=== PATIENT | female | born 1960 | race Caucasian/White ===

== ENCOUNTER 2018-08-19 10:37 | Emergency (ER) | payer OTHER ==
[~2018-08-19] VITALS: Ht 162.6 cm; Wt 104.3 kg
--- NOTE | ~2018-08-19 | EKG ---
[address] [address] ELECTROCARDIOGRAM REPORT Name: EUSEBIO MARCOS Room [facility]: [id number] Admission: 08/19/18 Attend Phys: Discharge: 08/19/18 Date of : 60 Report #: [id number] THIS REPORT FOR: //name// [facility] ED Test Date: 2018-08-19 Test Time: 10:43:11 Pat Name: EUSEBIO MARCOS Department: Room: Gender: F [employer]: : 1960 Requested By: Merlin Ulloa Order Number: [id number] MD: Moy Teresa Measurements Intervals [place] Rate: 75 P: 65 ND: 157 QRS: -29 QRSD: 95 T: 34 QT: 397 QTc: 444 Interpretive Statements Sinus rhythm Borderline left axis deviation Anteroseptal infarct, age indeterminate Compared to ECG 07/08/2018 07:03:35 Myocardial infarct finding now present Electronically Signed On 08-20-2018 8:26:16 CDT by Moy Teresa [email or web address] <ELECTRONICALLY SIGNED> By: Moy Teresa MD 08/20/18 0826 1043 [id number] Moy Teresa MD /LOLA
[~2018-08-19 10:37] MED LIST: FLEXERIL PO; MEDROLDOSEPACK PO; NORCO 5-325 TA1 EACH PO; NORFLEX100 MG PO; SYNTHROID50 MCG PO
[2018-08-19] MEDS ORDERED: NOHOMEMEDICATIONS (10:55)
[2018-08-19 10:59] LABS: HEMATOCRIT 34.9 % (37.0-47.0); HEMOGLOBIN 11.6 gm/dL (12.0-15.0); MCH 27.1 pg (26.0-34.0); MCHC 33.2 g/dL (28.0-37.0); MCV 81.4 fL (80.0-100.0); PLATELET COUNT 184 thou/uL (150-400); RBC 4.29 mil/uL (4.20-5.00); RDW 14.1 % (10.5-14.5); WBC 5.6 thou/uL (4.0-11.0)
[2018-08-19 11:04] LABS: ANION GAP 9 mmol/L (7-16); BUN 15 mg/dL (7-18); CALCIUM 9.2 mg/dL (8.5-10.1); CHLORIDE 106 mmol/L (98-107); CO2 27 mmol/L (21-32); CREATININE 0.8 mg/dL (0.6-1.0); GLUCOSE 126 mg/dL (74-106); POTASSIUM 3.7 mmol/L (3.5-5.1); SODIUM 142 mmol/L (136-145)
[2018-08-19 11:13] LABS: ALBUMIN 3.3 g/dL (3.4-5.0); SGOT 25 U/L (15-37); SGPT 24 U/L (30-65); TOTAL BILIRUBIN 0.3 mg/dL (<0.1-1.0); TOTAL PROTEIN 7.2 g/dL (6.4-8.2); TROPONIN-I <0.06 ng/mL (<0.06)
[2018-08-19 11:42] LABS: ABSOLUTE NEUTROPHILS 2.9 thou/uL (1.4-8.2); PLATELET ESTIMATE NORMAL
[2018-08-19 11:43] LABS: URINE BILIRUBIN NEGATIVE (Negative); URINE BLOOD 1+ (Negative); URINE CLARITY CLEAR; URINE COLOR YELLOW; URINE GLUCOSE-RANDOM* NEGATIVE (Negative); URINE KETONES NEGATIVE (Negative); URINE NITRITE-REFLEX NEGATIVE (Negative); URINE PROTEIN (DIPSTICK) NEGATIVE (Negative); URINE SPECIFIC GRAVITY >= 1.030 (1.005-1.035); URINE UROBILINOGEN 0.2 E.U./dl (0.2-1.0)
[2018-08-19 11:47] LABS: URINE LEUKOCYTES-REFLEX TRACE (Negative)
[2018-08-19 12:04] LABS: BACTERIA-REFLEX 1-9 Few /HPF (None Seen); CASTS None Seen /LPF (None Seen); CRYSTALS None Seen /LPF (None Seen); MUCUS >6 Heavy strn/LPF (None Seen); SQUAMOUS >10 Many /LPF (0-3); URINE RBC 0-2 Rare /HPF (0-2); URINE WBC-REFLEX 0-5 Rare /HPF (0-5)
== END 2018-08-19 13:33 | disposition home or self-care (01) ==
LOC: ER 10:37
PROVIDERS: Physician Assistant
DX: R55 Syncope and collapse (principal); J06.9 Acute upper respiratory infection, unspecified; E78.5 Hyperlipidemia, unspecified; E03.9 Hypothyroidism, unspecified; Z90.49 Acquired absence of other specified parts of digestive tract